=== PATIENT | female | born 1955 | race Caucasian/White ===

== ENCOUNTER 2016-11-10 08:53 | Day surgery (SDC) | payer OTHER, SELFPAY ==
[2016-11-07 08:40] VITALS: BMI 30.7
[2016-11-10 09:18] LABS: BASO % 0.4 % (0.0-2.0); EOS # 0.2 K/uL (0.0-0.7); HEMATOCRIT 38.6 % (34.0-47.0); LYMPH # 2.4 K/uL (1.0-4.3); LYMPH % 30.4 % (20.0-40.0); MEAN CELL VOLUME 83.6 fL (81.0-99.0); MEAN CORPUSCULAR HGB CONC 32.3 g/dL (33.0-37.0); MEAN PLATELET VOLUME 8.7 fL (7.2-11.7); MONO # 0.6 K/uL (0.0-0.8); MONO % 8.4 % (0.0-10.0); RED CELL DISTRIBUTION WIDTH 13.5 % (11.5-14.5); WHITE BLOOD COUNT 7.7 K/uL (4.8-10.8)
[2016-11-10] MEDS ORDERED: Propofol 10 mg/ml Inj (20 ML) ONE (11:33)
[2016-11-10] MEDS ORDERED: Midazolam 2 MG/2 ML VIAL ONE (11:33)
[2016-11-10] MEDS ORDERED: Iohexol 240 (50 ml) ONE (12:04)
[2016-11-10] MEDS ORDERED: Gentamicin 80 mg in 0.9% NS 160 MG/200 ML BAG IVPB ONE (12:04)
[2016-11-10] MEDS ORDERED: Lidocaine 2% Jelly (Uro-Jet) ONE (12:04)
--- NOTE | 2016-11-10 12:57 | PCM.SURG1 ---
Surgeon's Initial Post Op Note - Surgeon's Notes Surgeon: ivett chapa Pathology Tech: none Type of Anesthesia: General LMA Pre-Operative Diagnosis: r ureteral calculus Operative Findings: same Post-Operative Diagnosis: same Operation Performed: cysto. r ureteroscopy. laser lithotripsy. stone basketing. stent insertion Specimen/Specimens Removed: urine. 'stone Estimated Blood Loss: EBL {In ML}: 0 Blood Products Given: N/A Post-Op Condition: Good Date of Surgery/Procedure: 11/10/16 Time of Surgery/Procedure: 12:57
[2016-11-10] MEDS ORDERED: Lactated Ringer's 1,000 ML IV SCH (13:00)
[2016-11-10] MEDS ORDERED: HYDROmorphone 0.5 mg/0.5 ml ISec IVP PRN (13:37)
[2016-11-10] MEDS ORDERED: HYDROmorphone 1 mg/ml ISec ONE (13:42)
--- NOTE | 2016-11-10 15:51 | RAD ---
HISTORY: RT. URETER CALCULI COMPARISON: No prior. FINDINGS: BOWEL: Normal bowel gas pattern. Right ureteral stent noted. Approximately 7 mm calculus seen alongside distal aspect of right ureteral stent. Possible left renal calculus, approximately 6 mm. BONES: Normal. OTHER FINDINGS: None. IMPRESSION: Right ureteral stent with approximately 7 mm calculus alongside distal aspect of stent. Possible 6 mm left renal calculus.
[2016-11-10 16:15] VITALS: RESP 16; TEMP 97
[2016-11-10 16:17] VITALS: BP 113/68; PULSE 53; O2SAT 98
--- NOTE | 2016-11-12 08:39 | OP ---
PROCEDURE DATE: 11/10/2016 PREOPERATIVE DIAGNOSIS: Right ureteral calculus. POSTOPERATIVE DIAGNOSIS: Right ureteral calculus. PROCEDURE: Cystoscopy. Right ureteroscopy. Laser ureteral lithotripsy. Right ureteral stone basesthela ting. Insertion of right ureteral stent. OPERATING SURGEON: Dr. Lubna Diaz A [employer] income [employer] vice president film of the abdomen was obtained. The stone was noted to be adjacent to the stent on 2 views of the abdomen. The stone was located in the distal ureter, approximately 3-4 cm above the ureteral orifice. The patient was placed in lithotomy position. Genitalia prepped and draped sterilely. Anesthesia wa s provided by the anesthesiologist. Perioperative antibiotics were administered. A 22-Uzbek cystoscope sheath was introduced with obturator. Urine was sent for [facility]iologic [facility]. The urethra and bladder were inspected. There was noted to be mild cystitis. The right ureteral stent was identified. The stent was grasped with rigid grasping forceps and deliv ered along with the cystoscope sheath to the level of the urethral meatus. A 0.035-inch guidewire was inserted into the ureteral stent and passed up to the level of the kidney. The stent was removed. Ureteroscopy was performed with a 7-Uzbek rigid ureteroscope. The ureteroscope was advanced per ure thra into the bladder. The right ureteral orifice was identified. A second guidewire was inserted t hrough ureteroscope into the orifice. The ureteroscope was advanced in an atraumatic fashion. The s tone was encountered in the distal ureter. Procedure was performed under video endoscopic control as well as under fluoroscopic control. The stone was noted to be brown-black in color. Laser ureterolithotripsy was performed, using the holmium laser and a 365 micron fiber. There was ex cellent fragmentation obtained. Multiple stone fragments were removed using the 2.8-Uzbek 4-wire basket under direct ureteroscopic c ontrol. The ureteroscope was reinserted. There were no residual fragments. There was no trauma to the urete ral mucosa. There were no residual stones. The ureteroscope was removed. A 6-Uzbek multi-length stent was inserted over the remaining guidewire. Proper stent position was c onfirmed with fluoroscopy and endoscopy. A distal suture was left to exit from the stent per urethra . The bladder had been drained. The cystoscope and sheath were removed. The patient tolerated the procedure without complication. The patient was returned to the supine pos ition. The patient was transferred to the recovery room in satisfactory condition. Lubna Diaz MD cc: [phone] TT: 11/12/2016 08:38:50 en
--- NOTE | 2016-11-14 14:25 | RAD ---
PROCEDURE: HISTORY: RT. URETER CALCULI COMPARISON: Abdomen with obliques 11/10/2016 TECHNIQUE: Image 1, 3 and 4 are present FINDINGS: Image 1 shows a a right cannula guide wire sting the expected right ureteral course image number 3 shows right ureteral stent with proximal core all over the expected right renal pelvis lesion before shows the distal core all over the expected inferior bladder The previously referenced 7 mm calculus along the distal aspect of the stent is not seen on this exam. There is a smaller calculus right lateral to the distal ureteral stent A smaller additional calcification projecting over the distal right ureter smaller projecting over the distal right ureteral stent is possible. These 2 calcifications are likely phleboliths are much smaller than the previously referenced 7 mm calculus IMPRESSION: The previously referenced 7 mm ureteral stent calculus is no longer seen. The 2 smaller calculi seen on this exam consistent with small phleboliths
--- NOTE | 2016-11-15 09:08 | CARD ---
APPROVED REPORT EKG Measurement Heart [id number] CT [id number] [id number] <Conclusion> Normal sinus rhythm Normal ECG
[2016-11-15 17:30] LABS: STONE SOURCE Right Ureter
== END 2016-11-10 15:30 | disposition home or self-care (01) ==
LOC: C.SDS 08:53
PROVIDERS: ATTEND Urology
DX: N20.1 Calculus of ureter (principal)
CPT/HCPCS: 36415; 52356; 74020; 76000; 82365; 85025; 87086; 87181; 88300; 93005; J1170; J1580

== ENCOUNTER 2017-07-06 05:59 | Day surgery (SDC) | payer OTHER ==
[2017-07-04 09:29] VITALS: BMI 31.6
[2017-07-06] MEDS ORDERED: Iohexol 240 (50 ml) ONE (07:50)
[2017-07-06] MEDS ORDERED: cefTRIAXone IV 1 gm in Dextros 50 ML IVPB ONE (07:50)
[2017-07-06] MEDS ORDERED: Lidocaine 2% Jelly (Uro-Jet) ONE (07:51)
[2017-07-06] MEDS ORDERED: Lactated Ringer's 1,000 ML IV ONE ×2 (08:05→09:00)
[2017-07-06] MEDS ORDERED: Midazolam 2 MG/2 ML VIAL ONE (08:08)
[2017-07-06] MEDS ORDERED: Propofol 10 mg/ml Inj (20 ML) ONE (08:08)
[2017-07-06] MEDS ORDERED: ePHEDrine 50 mg/ml Inj ONE (08:29)
[2017-07-06] MEDS ORDERED: Gentamicin 80 mg in 0.9% NS 80 MG/100 ML BAG IVPB ONE (09:22)
--- NOTE | 2017-07-06 09:22 | PCM.SURG1 ---
Surgeon's Initial Post Op Note - Surgeon's Notes Surgeon: Teresa ANDREW [employer] Mechanical Technician: NONE Type of Anesthesia: General LMA Pre-Operative Diagnosis: L distal ureteral calculus Operative Findings: same Post-Operative Diagnosis: same Operation Performed: cysto. L uretroscopy. laser lithotripsy. stone basketing. stent insertion Specimen/Specimens Removed: urine. stone Estimated Blood Loss: EBL {In ML}: 0 Blood Products Given: N/A Post-Op Condition: Good Date of Surgery/Procedure: 07/06/17 Time of Surgery/Procedure: 09:10
[2017-07-06] MEDS ORDERED: Lactated Ringer's 1,000 ML IV SCH (09:30)
[2017-07-06 10:57] VITALS: RESP 18
[2017-07-06] MEDS ORDERED: Oxycodone/Acetaminophen 5/325 mg Tab PO ONE (11:30)
[2017-07-06 12:12] VITALS: BP 118/72; PULSE 65; TEMP 98; O2SAT 100
--- NOTE | 2017-07-06 13:15 | RAD ---
PROCEDURE: Intraoperative Fluoroscopy. HISTORY: LT URETERAL STONE FINDINGS: Fluoroscopic assistance was provided. 62.7 seconds of fluoroscopy time utilized during this procedure. Radiation dose = 1.74 mGy-cm
--- NOTE | 2017-07-06 18:37 | RAD ---
HISTORY: LT URETERAL STONE COMPARISON: 11/10/2016 FINDINGS: BOWEL: Normal. No obstruction. No free air. BONES: Normal. OTHER FINDINGS: Position of the double J stent catheter(s): Satisfactory position on the left. No visible calculi IMPRESSION: Satisfactory position of recently placed double-J catheter on the left.
--- NOTE | 2017-07-09 00:01 | OP ---
UROLOGY OPERATIVE REPORT PROCEDURE DATE: 07/06/2017 PREOPERATIVE DIAGNOSIS: Left ureteral calculus. POSTOPERATIVE DIAGNOSIS: Left ureteral calculus. PROCEDURES: 1. Cystoscopy. 2. Left ureteroscopy. 3. Laser ureteral lithotripsy. 4. Left ureteral stone basketing. 5. Left retrograde pyelogram. 6. Insertion of left ureteral stent. OPERATING SURGEON: Lubna Diaz MD DESCRIPTION OF PROCEDURE: The patient received perioperative antibiotics. The patient was placed in lithotomy position. Genitalia were prepped and draped sterilely. Anesthesia was provided by the anesthesiologist. Procedure was performed under videoendoscopic control as well as under fluoroscopic control. Link Cutter film of the abdomen revealed multiple calcifications within the left pelvis. The patient was in lithotomy position. Genitalia were prepped and draped sterilely. A 22-Mexican cystoscope sheath was introduced with obturator. Urine was sent for bacteriologic examination. The bladder was inspected. There was no bladder tumor. There was no bladder stone. The left ureteral orifice was identified. Due to the presence of a cystocele, the left ureteral orifice was difficult at first to cannulate. The ureteral guidewire was able to be inserted with the use of a [place] angle-tipped ureteral catheter. The guidewire was inserted into the ureter. The guidewire was negotiated, passed the stone up to the level of the kidney. A second guidewire was inserted with the use of a 10-Mexican double-lumen ureteral catheter. Ureteroscopy was performed with the 7-Mexican mini-rigid ureteroscope passed over the working wire. The ureteral stone was encountered in the distal ureter, approximately 3-4 cm above the ureteral orifice. The stone was noted to be hard brown stone. Laser ureteral lithotripsy was performed with Holmium laser and 365-micron fiber. There was noted to be excellent fragmentation. Additionally, dusting mode was used. The multiple fragments were removed using the 2.8-Mexican four-wire basket. Complete stone removal was accomplished upon further inspection. The ureteral mucosa was fully intact, following the atraumatic ureteral lithotripsy and stone basketing. Iodinated contrast instill in scope via the double-lumen ureteral catheter to delineate the anatomy of the collecting system. A 6-Mexican multi-length stent was inserted over the remaining guidewire. Proper stent position was confirmed with fluoroscopy and endoscopy. The distal suture was left to exit from the distal end of the stent per urethra. The bladder was then drained. Cystoscope sheath removed. The patient was returned to supine position. The patient was transferred to recovery room in satisfactory condition. Lubna Diaz MD
== END 2017-07-06 12:45 | disposition home or self-care (01) ==
LOC: C.SDS 05:59
PROVIDERS: ATTEND Urology
DX: N20.1 Calculus of ureter (principal)
CPT/HCPCS: 52356; 74020; 82365; 87086; 88300; J0696; J1170; J1580; J7120